=== PATIENT | female | born 1995 | race Caucasian/White ===

== ENCOUNTER → 2023-08-05 17:51 | Outpatient (REF) | payer OTHER, SELFPAY | LOC: RAD 17:51 | PROVIDERS: ATTENDING PHYSICIAN Emergency Medicine; FAMILY PHYSICIAN Internal Medicine | DX: S62.654A Nondisplaced fracture of middle phalanx of right ring finger, initial encounter for closed fracture (principal) | CPT/HCPCS: 73140 ==

== ENCOUNTER → 2023-12-24 09:54 | Outpatient (REF) | payer OTHER, SELFPAY ==
[2023-12-25 15:37] LABS: H. pylori Breath Test Negative (Negative)
== END ==
LOC: LAB 09:54
PROVIDERS: ATTENDING PHYSICIAN Internal Medicine Gastroenterology; FAMILY PHYSICIAN Internal Medicine
DX: R10.13 Epigastric pain (principal)
CPT/HCPCS: 83013

== ENCOUNTER → 2024-02-10 06:27 | Day surgery (SDC) | payer OTHER, SELFPAY | LOC: GI 06:27 | PROVIDERS: ATTENDING PHYSICIAN Internal Medicine Gastroenterology | DX: R10.13 Epigastric pain (principal); K31.89 Other diseases of stomach and duodenum; K29.50 Unspecified chronic gastritis without bleeding | CPT/HCPCS: 43239; 88305; 88342 ==

== ENCOUNTER → 2024-05-06 08:05 | Outpatient (REF) | payer OTHER, SELFPAY | LOC: RAD 08:05 | PROVIDERS: ATTENDING PHYSICIAN Internal Medicine | DX: K58.1 Irritable bowel syndrome with constipation (principal) | CPT/HCPCS: 74177; Q9967 ==

== ENCOUNTER 2024-05-26 10:00 | Day surgery (SDC) | payer OTHER, SELFPAY | END 2024-05-26 10:01 | disposition home or self-care (01) | LOC: GI 10:00 | PROVIDERS: ATTENDING PHYSICIAN Internal Medicine Gastroenterology | DX: R19.4 Change in bowel habit (principal); Z53.8 Procedure and treatment not carried out for other reasons | CPT/HCPCS: 45378; G0378 ==